=== PATIENT | male | born 1945 | race Caucasian/White ===

== ENCOUNTER 2017-07-16 10:16 | Outpatient (CLI) | payer MEDICARE ==
[2017-07-16 12:12] LABS: #Eosinphils 0.2 thou/uL (0.0-0.7); #Lymphocytes 1.7 thou/uL (1.20-3.40); #Monocytes 0.6 thou/uL (0.11-0.59); #Neutrophils 3.3 thou/uL (1.40-6.50); %Basophils 0.9 % (0.0-1.0); %Eosinophils 2.9 % (0.0-10.0); %Monocytes 10.1 % (0.0-10.0); Hematocrit 47.9 % (42.0-52.0); Red Blood Cell (RBC) Count 4.98 mill/uL (4.70-6.10); White Blood Cell (WBC) Count 5.7 thou/uL (4.8-10.8)
[2017-07-16 12:35] LABS: ALT (SGPT) 24 U/L (8-55); AST (SGOT) 21 U/L (5-34); Alkaline Phosphatase 98 U/L (40-150); Anion Gap 12 mmol/L (10-20); BUN (Urea Nitrogen) 19 mg/dL (8.4-25.7); Bilirubin, Total 0.4 mg/dL (0.2-1.2); Calc. Creatinine Clearance 0 mL/min (70-130); Calcium 10.4 mg/dL (7.8-10.44); Carbon Dioxide 30 mmol/L (23-31); Chloride 101 mmol/L (98-107); Estimated GFR-MDRD Greater than 90; Globulin 3.1 g/dL (2.4-3.5); Protein, Total 7.6 g/dL (5.8-8.1)
--- NOTE | 2017-07-17 14:26 | EKG ---
Test Reason : Blood Pressure : / mmHG Vent. Rate : 071 BPM Atrial Rate : 071 BPM P-R Int : 154 ms QRS Dur : 106 ms QT Int : 428 ms P-R-T Axes : 062 -46 086 degrees QTc Int : 465 ms Normal sinus rhythm Incomplete right bundle branch block Left anterior fascicular block Lateral infarct , age undetermined Cannot exclude Abnormal ECG Confirmed by HARRIS BAUGH ([id number]) on 07/17/2017 2:25:46 PM Referred By: GOMEZ Confirmed By:HARRIS BAUGH
== END 2017-07-16 10:17 | disposition home or self-care (01) ==
LOC: LABBT 10:16
PROVIDERS: ATTEND Surgery
DX: Z01.812 Encounter for preprocedural laboratory examination (principal); K40.20 Bilateral inguinal hernia, without obstruction or gangrene, not specified as recurrent
CPT/HCPCS: 80053; 85025; 93005; 93010

== ENCOUNTER → 2017-07-18 | Day surgery (SDC) | payer MEDICARE ==
[2017-07-16 10:35] VITALS: BMI 27.1
[~2017-07-18] MED LIST: Bupivacaine/Epinephrine 0.25% 30 ML VIAL ONE; CEFAZOLIN/Water 2 GM/20 ML SYRINGE ONE; Fentanyl 100 MCG/2 ML VIAL ONE; Fentanyl 250 MCG/5 ML VIAL ONE; Midazolam HCl 2 mg/2 ml Vial ONE; Ondansetron HCl/PF 4 MG/2 ML Vial ONE
--- NOTE | 2017-07-18 13:20 | OP ---
PREOPERATIVE DIAGNOSIS: Bilateral inguinal hernia. SURGEON: Clemente Brand M.D. PROCEDURE PERFORMED: Laparoscopic robotic assisted bilateral inguinal hernia repair with mesh. INDICATIONS: A 71-year-old male with enlarging bilateral inguinal hernias. They are causing quite a bit of discomfort. FINDINGS: Very large bilateral inguinal hernias containing the cecum on the right and part of the si gmoid colon on the left. PROCEDURE IN DETAIL: After informed consent was obtained, patient was taken to the operating room an d given general endotracheal anesthesia, placed in the supine position. Abdomen was prepped and drap ed in the usual fashion. Local anesthesia infiltrated subcutaneously and deep. A supraumbilical inc ision was performed. Subcu divided sharply. The fascia grasped and an incision made in the fascia. Digital palpation revealed no local adhesions. A 12 mm trocar inserted. Pneumoperitoneum was creat ed to a pressure of 15 mmHg and a 30 degree scope was inserted and two 8 mm ports were placed just la teral to the rectus bilateral at that level. The patient placed in Trendelenburg position and the ro bot was docked, I went below to the console. The left side was approached first. The peritoneum was opened for median umbilical ligament to laterally. A subperitoneal plane was developed and a very l arge hernia, it got as much of it reduces I could which is a very tedious and slow process of reducti on of the hernia. Eventually got it all reduced and then moved to the right side. Again, this one c ontained visible cecum. This was able to be reduced mostly. Then the peritoneum opened from medium umbilical ligament laterally. Subplatysmal subperitoneal plane developed using blunt and sharp disse ction. The cord structures were dissected out and the hernia reduced, again being a very difficult s low process. Then started on the right, the Covidien ProGrip mesh was inserted first to right side a nd inserted pubic tubercle medially, then laid out laterally, then opened superiorly and inferiorly a nd positioned properly to cover the inguinal canal and defects. Then, went to the left side, again, this side was inserted. Green colored Nathan was placed at the pubic tubercle. It was positioned th en laterally; then opened superiorly and inferiorly to cover the defect. Once it was secured, the pe ritoneum was closed utilizing a running Stradis V-Loc from lateral to medial on the right and then on the left from lateral to medial. On the right side, I had to transect the hernia sac in order to ge t it fully reduced and then I closed the peritoneum with a running 2-0 silk suture tied intracorporea lly. Hemostasis assured. Trocars removed under direct vision. The abdomen decompressed. The fasci a was closed with interrupted 0 Vicryl suture. Skin closed with interrupted 4-0 Monocryl. Dermabond applied. The patient tolerated the procedure well and transferred to recovery in good condition. S ponge and needle count verified correct x2.
== END ==
LOC: SDC 07:54
PROVIDERS: ATTEND Surgery
PROC: 0YUA0JZ Supplement Bilateral Inguinal Region with Synthetic Substitute, Open Approach (ICD-10-PCS; principal; 2017-07-18)
DX: K40.20 Bilateral inguinal hernia, without obstruction or gangrene, not specified as recurrent (principal); I10 Essential (primary) hypertension; I48.91 Unspecified atrial fibrillation; M10.9 Gout, unspecified; F17.220 Nicotine dependence, chewing tobacco, uncomplicated; Z79.82 Long term (current) use of aspirin; Z79.899 Other long term (current) drug therapy; Z88.8 Allergy status to other drugs, medicaments and biological substances; Z98.890 Other specified postprocedural states
CPT/HCPCS: J0131; J2250; J2405; J3010

== ENCOUNTER 2023-07-07 13:44 | Outpatient (CLI) | payer MEDICARE ==
[2023-07-07 14:52] LABS: #Eosinphils 0.1 10x3/uL (0.0-0.5); #Monocytes 0.1 10x3/uL (0.0-1.1); #Neutrophils 1.4 10x3/uL (1.5-8.4); %Basophils 0.3 % (0.0-2.0); %Lymphocytes 47.4 % (18.0-47.0); %Monocytes 2.9 % (0.0-10.0); %Neutrophils 47.1 % (40.0-75.0); Hematocrit 42.9 % (38.8-50.0); Hemoglobin 14.7 g/dL (13.5-17.5); Mean Corpuscular HGB CONC 34.3 g/dL (32.0-36.0); Mean Corpuscular Hemoglobin 31.4 pg (27.0-33.0); Mean Corpuscular Volume 91.7 fl (81.2-95.1); Mean Platelet Volume 10.3 fl (7.4-10.4); Platelet Count 180 10x3/uL (150-450); RBC Distribution Width 13.8 % (11.5-14.5); Red Blood Cell (RBC) Count 4.68 10x6/uL (4.32-5.72); White Blood Cell (WBC) Count 3.1 10x3/uL (3.5-10.5)
[2023-07-07 15:15] LABS: ALT (SGPT) 15 U/L (8-55); AST (SGOT) 19 U/L (5-34); Albumin 4.3 g/dL (3.4-4.8); Alkaline Phosphatase 106 U/L (40-110); Anion Gap 16 mmol/L (10-20); BUN (Urea Nitrogen) 14 mg/dL (8.4-25.7); Bilirubin, Total 0.7 mg/dL (0.2-1.2); Calc. Creatinine Clearance 0 mL/min (70-130); Calcium 9.8 mg/dL (7.8-10.44); Carbon Dioxide 23 mmol/L (23-31); Chloride 102 mmol/L (98-107); Estimated GFR 97; Globulin 3.1 g/dL (2.4-3.5); Glucose 84 mg/dL (83-110); Potassium 4.2 mmol/L (3.5-5.1); Protein, Total 7.4 g/dL (5.8-8.1); Sodium 137 mmol/L (136-145)
== END 2023-07-07 13:45 | disposition home or self-care (01) ==
LOC: LABBT 13:44
PROVIDERS: ATTEND Surgery
DX: Z01.812 Encounter for preprocedural laboratory examination (principal); K40.91 Unilateral inguinal hernia, without obstruction or gangrene, recurrent
CPT/HCPCS: 80053; 85025

== ENCOUNTER 2023-07-14 06:35 | Day surgery (SDC) | payer MEDICARE ==
[2023-07-07 14:31] VITALS: BMI 22.4
[2023-07-14] MEDS ORDERED: Lidocaine 1% PF 5 ML VIAL ONE ×2 (08:05→08:58)
[2023-07-14] MEDS ORDERED: fentaNYL 50 mcg/mL 1 mL Vial ONE (08:05)
[2023-07-14] MEDS ORDERED: PROPOFOL 0 ML ONE (08:05)
[2023-07-14] MEDS ORDERED: SUGAMMADEX SODIUM 200 MG/2 ML VIAL ONE (08:14)
[2023-07-14] MEDS ORDERED: EPINEPHrine 1 MG/ML VIAL ONE (08:32)
[2023-07-14] MEDS ORDERED: Bupivacaine 0.25% HCL 30 ML VIAL ONE (08:33)
[2023-07-14] MEDS ORDERED: CEFAZOLIN 2 GM VIAL ONE (08:44)
[2023-07-14] MEDS ORDERED: Sodium Chloride 0.9% 100 ML ONE (08:44)
[2023-07-14] MEDS ORDERED: PROPOFOL 20 ML ONE (08:57)
[2023-07-14] MEDS ORDERED: Ondansetron PF 4 MG/2 ML Vial ONE ×2 (08:58→09:30)
[2023-07-14] MEDS ORDERED: ePHEDrine Sulfate 50 MG/10 ML VIAL ONE ×2 (08:58→09:21)
[2023-07-14] MEDS ORDERED: PROPOFOL 200 MG/20 ML VIAL ONE (08:58)
== END 2023-07-14 10:59 | disposition home or self-care (01) ==
LOC: SDC 06:35
PROVIDERS: ATTEND Surgery
PROC: 0YQ50ZZ Repair Right Inguinal Region, Open Approach (ICD-10-PCS; principal; 2023-07-14)
DX: K40.91 Unilateral inguinal hernia, without obstruction or gangrene, recurrent (principal); I48.91 Unspecified atrial fibrillation; I10 Essential (primary) hypertension; E78.5 Hyperlipidemia, unspecified; F10.90 Alcohol use, unspecified, uncomplicated; Z79.82 Long term (current) use of aspirin; Z79.899 Other long term (current) drug therapy
CPT/HCPCS: 49520; C1781; J0171; J3010; J2405; J2704; J3490; S0020

== ENCOUNTER 2024-02-19 08:40 | Outpatient (CLI) | payer MEDICARE | END 2024-02-19 08:41 | disposition home or self-care (01) | LOC: BICULT 08:40 | PROVIDERS: ATTEND Urology | DX: N43.3 Hydrocele, unspecified (principal) | CPT/HCPCS: 76870; 93976 ==